=== PATIENT | female | born 1960 | race Caucasian/White ===

== ENCOUNTER 2017-02-23 14:00 | Observation (INO) | payer MEDICARE ==
[2017-02-23] VITALS (7 sets, daily range): BP systolic 107–137; BP diastolic 66–75; PULSE 107–124; RESP 16–24; TEMP 97.4–98.2; O2SAT 94–97
[~2017-02-23] VITALS: Ht 172.7 cm; Wt 71.5 kg
[~2017-02-23 14:00] MED LIST: AMIT1TAB79 PO; ASPI81TA81 PO; ATOR20TA15 PO; CARV6.252 PO; ENAL5TAB PO; FERR325T PO; FURO1TAB60 PO; GABA800T PO; GLUC1000 PO; IBUP800T23 PO; LETR2.5T PO; LORA1TAB12 PO; ONETTES4; VENL150T PO
--- NOTE | 2017-02-23 14:22 | PD ---
Physical Exam Date Seen by Provider: Feb 23, 2017 Time Seen by Provider: 14:16 Narrative 56 y/o female presents with increased SOB and Dyspnea with exertion. Patient has Hx Ascites and CHF last treated in 2013. Patient notes 14 lb weight gain in the past month. Patient states does not usually get lower extremity edema. Patient denies Chest pain, cough, or wheezing. No Hx Fever or cough. Denies COPD Hx. Patient states episode of Orthopnea last night. Patient currently takes Lasix 40mg daily. Reports decreased Urination, but no abd pain. V/S Stable. Cardiac Protocols ordered, CXR, and ProBNP ordered. Patient awaiting Med Bed Placement. Data Data Last Documented VS Vital Signs Date Time Temp Pulse Resp B/P Pulse Ox O2 Delivery O2 Flow Rate FiO2 02/23/17 14:02 97.4 124 24 137/75 97 Room Air [facility] Medical Record Reviewed: Yes Supervised Visit with NAUN: Yes Condition: Stable Jeffrey Allen Feb 23, 2017 14:22
[2017-02-23 15:03] LABS: AUTOMATED NEUTROPHIL # 7.6 TH/MM3 (1.8-7.7); BASOPHIL # 0.1 TH/MM3 (0-0.2); BASOPHIL % 0.6 % (0.0-2.0); EOSINOPHIL # 0.3 TH/MM3 (0-0.4); EOSINOPHIL % 2.9 % (0.0-4.0); HEMATOCRIT 36.6 % (35.0-46.0); HEMO FLAGS DIFF FINAL; LYMPH % 22.5 % (9.0-44.0); LYMPHOCYTE # 2.4 TH/MM3 (1.0-4.8); MEAN CELL VOLUME 88.8 FL (80.0-100.0); MEAN CORPUSCULAR HEMOGLOBIN 30.2 PG (27.0-34.0); MONO % 3.2 % (0.0-8.0); NEUT % 70.8 % (16.0-70.0); PLATELET COUNT 182 TH/MM3 (150-450); RED BLOOD COUNT 4.12 MIL/MM3 (4.00-5.30); RED CELL DISTRIBUTION WIDTH 13.8 % (11.6-17.2); WHITE BLOOD COUNT 10.8 TH/MM3 (4.0-11.0)
[2017-02-23 15:24] LABS: ANION GAP 10 MEQ/L (5-15); BLOOD UREA NITROGEN 13 MG/DL (7-18); CHLORIDE 103 MEQ/L (98-107); GLOMERULAR FILTRATION RATE 71 ML/MIN (>89); POTASSIUM 3.9 MEQ/L (3.5-5.1); SODIUM (NA) 138 MEQ/L (136-145)
--- NOTE | 2017-02-23 15:28 | RADRPT ---
EXAM DATE/TIME: 02/23/2017 15:13 [facility] COMPARISON: CHEST SINGLE AP, December 12, 2015, 14:54. INDICATIONS : Shortness of breath. MEDICAL HISTORY : Congestive heart failure. Carcinoma, breast. Diabetes mellitus type II. SURGICAL HISTORY : Right breast lumpectomy. ENCOUNTER: Initial ACUITY: 2 days PAIN SCORE: 0/10 LOCATION: chest FINDINGS: The heart is normal size. Central bronchopulmonary markings well delineated. There are a few thin h orizontal linear densities in the lower lateral left lung which may represent Kary B lines. No evid ence of equalization or cephalization of pulmonary flow. The azygos vein is normal in size. No evid ence of pleural effusion. The lungs are clear without focal infiltrate. CONCLUSION: No focal infiltrates seen. Possible thin septal lines at the left base is a nonspecific finding but can be seen with pulmonary venous hypertension. Vivek Valadez MD on February 23, 2017 at 15:24 Board Certified Radiologist. This report was verified electronically.
--- NOTE | 2017-02-23 15:39 | PD ---
HPI Chief Complaint: Respiratory Symptoms Time Seen by Provider: 15:38 Travel History International Travel<30 days: No Contact w/Intl Traveler<30days: No Traveled to known affect area: No History of Present Illness HPI 56-year-old female with PMH of CHF, breast cancer s/p partial mastectomy, ascites presents to the ED for evaluation of less than 24 hour history of shortness of breath, dyspnea on exertion, orthopnea. Endorses 10-15 pound weight gain over the last month. She denies fever or chills, cough, history of COPD, abdominal pain, nausea, vomiting, changes in bowel habits, lower extremity edema. Takes 40mg Lasix daily. Current smoker. PFSH Past Medical History Arthritis: Yes Cancer: Yes (breast) Cardiovascular Problems: Yes (CHF) Chemotherapy: Yes Congestive Heart Failure: Yes Diabetes: Yes Genitourinary: No Hypertension: Yes (DX LAST WEEK) Musculoskeletal: No Neurologic: No Reproductive: No Respiratory: Yes (CHF) Immunizations Current: Yes Radiation Therapy: Yes Menopausal: Yes Ectopic : Yes Ovarian Cysts: Yes Dilation and Curettage (D&C): Yes Past Surgical History Cholecystectomy: Yes Gynecologic Surgery: Yes (PARTIAL R MASTECTOMY) Hysterectomy: Yes Thoracic Surgery: Yes (lumpectomy) Tonsillectomy: Yes Other Surgery: Yes Social History Alcohol Use: No Tobacco Use: Yes (1 ppd) Substance Use: No Allergies-Medications (Allergen,Severity, Reaction): Coded Allergies: Gadolinium Derivatives (Verified Allergy, Severe, Swelling, 01/07/17) Reported Meds & Prescriptions Reported Meds & Active Scripts Active Lorazepam 1 Mg Tab 1 Mg PO HS PRN 2 Tablets at bed time as needed Venlafaxine ER 24 HR (Venlafaxine HCl) 150 Mg Tab 150 Mg PO DAILY Ferrous Sulfate 325 Mg Tab 325 Mg PO HS Letrozole 2.5 Mg Tab 2.5 Mg PO DAILY Glucophage (Metformin HCl) 1,000 Mg Tab 1,000 Mg PO BIDPC With a meal Enalapril (Enalapril Maleate) 5 Mg Tab 2.5 Mg PO BID Carvedilol 6.25 Mg Tab 3.125 Mg PO BID Atorvastatin (Atorvastatin Calcium) 20 Mg Tab 20 Mg PO DAILY Lasix (Furosemide) 40 Mg Tab 40 Mg PO DAILY Elavil (Amitriptyline HCl) 25 Mg Tab 25 Mg PO HS Reported Ibuprofen 800 Mg Tab 800 Mg PO TID Aspir-81 (Aspirin) 81 Mg Tabdr 81 Mg PO DAILY Onetouch Ultra Test Strips (Blood Glucose Test Strips) 1 Viridiana Viridiana 1 Strip .ROUTE DIRECTED Gabapentin 800 Mg Tab 800 Mg PO TID Review of Systems Except as stated in HPI: all other systems reviewed are Neg Physical Exam Narrative GENERAL: Well-nourished, well-developed white female in no acute distress. SKIN: Focused skin assessment warm/dry. There is a 2 cm rubbery, mobile, nontender nodule on the right collarbone. No signs of infection. HEAD: Normocephalic. EYES: No scleral icterus. No injection or drainage. NECK: Supple, trachea midline. No JVD or lymphadenopathy. CARDIOVASCULAR: Regular rate and rhythm without murmurs, gallops, or rubs. 2+ DP and radial pulses bilaterally. RESPIRATORY: Breath sounds clear and equal bilaterally. No accessory muscle use. Tachypneic. GASTROINTESTINAL: Abdomen soft, non-tender, nondistended. No fluid wave. No hepatosplenomegaly. Active bowel sounds. MUSCULOSKELETAL: No cyanosis, or edema. Patient is ambulatory and moves the extremities spontaneously. BACK: Nontender without obvious deformity. No CVA tenderness. Data Data Last Documented VS Vital Signs Date Time Temp Pulse Resp B/P Pulse Ox O2 Delivery O2 Flow Rate FiO2 02/23/17 19:55 112 22 127/74 94 Room Air 02/23/17 16:09 2 02/23/17 14:02 97.4 Orders Complete Blood Count With Diff (02/23/17 14:15) Basic Metabolic Panel (Bmp) (02/23/17 14:15) Chest, Single Ap (02/23/17 14:15) Electrocardiogram (02/23/17 14:15) B-Type Natriuretic Peptide (02/23/17 14:15) Troponin I (02/23/17 14:15) Furosemide Inj (Lasix Inj) (02/23/17 15:45) Iv Access Insert/Monitor (02/23/17 15:43) Ecg Monitoring (02/23/17 15:46) Oximetry (02/23/17 15:46) Sodium Chloride 0.9% Flush (Ns Flush) (02/23/17 16:00) Ct Pulmonary Angiogram (02/23/17 15:48) Iohexol 350 Inj (Omnipaque 350 Inj) (02/23/17 18:58) Labs Laboratory Tests Test 02/23/17 14:45 White Blood Count 10.8 TH/MM3 Red Blood Count 4.12 MIL/MM3 Hemoglobin 12.4 GM/DL Hematocrit 36.6 % Mean Corpuscular Volume 88.8 FL Mean Corpuscular Hemoglobin 30.2 PG Mean Corpuscular Hemoglobin 34.0 % Concent Red Cell Distribution Width 13.8 % Platelet Count 182 TH/MM3 Mean Platelet Volume 9.5 FL Neutrophils (%) (Auto) 70.8 % Lymphocytes (%) (Auto) 22.5 % Monocytes (%) (Auto) 3.2 % Eosinophils (%) (Auto) 2.9 % Basophils (%) (Auto) 0.6 % Neutrophils # (Auto) 7.6 TH/MM3 Lymphocytes # (Auto) 2.4 TH/MM3 Monocytes # (Auto) 0.3 TH/MM3 Eosinophils # (Auto) 0.3 TH/MM3 Basophils # (Auto) 0.1 TH/MM3 CBC Comment DIFF FINAL Differential Comment Sodium Level 138 MEQ/L Potassium Level 3.9 MEQ/L Chloride Level 103 MEQ/L Carbon Dioxide Level 25.0 MEQ/L Anion Gap 10 MEQ/L Blood Urea Nitrogen 13 MG/DL Creatinine 0.83 MG/DL Estimat Glomerular Filtration 71 ML/MIN Rate Random Glucose 177 MG/DL Calcium Level 8.9 MG/DL Troponin I LESS THAN 0.02 NG/ML B-Type Natriuretic Peptide 355 PG/ML MDM Medical Decision Making Medical Screen Exam Complete: Yes Emergency Medical Condition: Yes Differential Diagnosis CHF exacerbation versus PE versus pneumonia versus ascetics versus metastasis versus other Narrative Course 56-year-old female with PMH of CHF, breast cancer, ascites presents to the ED for evaluation of less than 24 hour history of shortness of breath, dyspnea on exertion, orthopnea. Endorses 10-15 pound weight gain over the last month. She denies fever or chills, cough, history of COPD, abdominal pain, nausea, vomiting , changes in bowel habits, lower extremity edema. Takes 40mg Lasix daily. Current smoker. Vital reviewed. Patient is tachycardic and tachypneic on presentation. O2 sats 96% on 2 L nasal cannula. Physical exam reveals a nontoxic-appearing white female in no acute distress. She is speaking in short sentences. Chest is clear to auscultation bilaterally. Abdomen soft, nontender. No fluid wave. No lower extremity edema. Patient was placed on continuous monitoring. IV was established. Patient was administered 40 mg Lasix IV. CBC: No leukocytosis or anemia BMP: Unremarkable BNP: 355 Troponin: <0.02 Chest x-ray: No focal infiltrates. Questionable thin septal lines of the left base, nonspecific but may be seen with pulmonary venous hypertension per radiology read. EKG: Rate 112, sinus rhythm. NJ interval 149 ms, QRS 90 ms, QTC 417 ms. Normal axis. No ST elevations or depressions. Similar to previous EKG of . Reviewed by Dr. Schmidt. CTA: Negative for PE. Bilateral small pleural effusions. There is a 5 mm nodule in the left lower lateral lung. Mildly prominent mid mediastinal lymph nodes. Questionable malignancy especially considering history of breast cancer. Outpatient CT or PET scan might be appropriate per radiology read. I discussed the results of the CTA with the patient. Given her continued tachypnea and shortness of breath I recommended that she stay for observation. Patient initially wanted to go home but after attempting to walk down the [place] and becoming quite dyspneic she opted to stay. Call placed to the residents who agreed to accept the patient to the medical service. Please see medicine for disposition. Diagnosis Primary Impression: Shortness of breath Additional Impression: Mass of lower lobe of left lung Theresa York Feb 23, 2017 15:39
[2017-02-23] MEDS ORDERED: FUROSEMIDE 40 MG/4 ML VIAL IV PUSH ONE (15:45)
[2017-02-23] MEDS ORDERED: SODIUM CHLORIDE 0.9% FLUSH 10 ML FLUSH IVF PRN (16:00)
[2017-02-23] MEDS ORDERED: IOHEXOL 350 MG/ML 10 ML VIAL (for RAD DIAG) IV ONE (18:58)
--- NOTE | 2017-02-23 19:26 | RADRPT ---
EXAM DATE/TIME: 02/23/2017 18:53 [facility] COMPARISON: No previous studies available for comparison. INDICATIONS : Shortness of breath since yesterday. IV CONTRAST: 70 cc Omnipaque 350 (iohexol) IV RADIATION DOSE: 23.04 CTDIvol (mGy) MEDICAL HISTORY : Congestive hearrt failure. Hypertension. Carcinoma, breast.diabetes SURGICAL HISTORY : Cholecystectomy. Mastectomy, right. ENCOUNTER: Initial ACUITY: 1 day PAIN SCALE: 0/10 LOCATION: Bilateral chest TECHNIQUE: Volumetric scanning of the chest was performed using a pulmonary embolism protocol MIP images were re constructed. Using automated exposure control and adjustment of the mA and/or kV according to patien t size, radiation dose was kept as low as reasonably achievable to obtain optimal diagnostic quality images. FINDINGS: PULMONARY ARTERIES: No filling defects are seen in the pulmonary arteries through the segmental level. LUNGS: There is a 5 mm nodule posterolateral right lower lung is seen on image #54. The remainder of the jocelynn ngs are clear. PLEURAE: There are small bilateral pleural effusions measuring up to 7 mm in thickness. MEDIASTINUM: Multiple mediastinal lymph nodes, the largest is in the subcarinal region measuring 1.5 cm. AP windo w nodes measure up to 9 mm and several nodes lateral to the arch of the aorta measure up to 9 mm. Th e azygos node measures 8 mm. CONCLUSION: 1. The study is negative for pulmonary embolism. 2. There is a 5 mm nodule in the lower lateral right lung and there are multiple mildly prominent mid dle mediastinal lymph nodes. This is nonspecific, but does raise the possibility of malignancy. 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 3. Bilateral pleural effusions, small. History of prior breast cancer with right mastectomy. Vivek Valadez MD on February 23, 2017 at 19:20 Board Certified Radiologist. This report was verified electronically.
[2017-02-23] MEDS ORDERED: REMOVE OLD PATCH T-DERMAL SCH (21:00)
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
[2017-02-23] MEDS ORDERED: ONDANSETRON HCL 4 MG/2 ML VIAL IVP PRN (21:15)
[2017-02-23] MEDS ORDERED: TEMAZEPAM 15 MG CAP PO PRN (21:15)
[2017-02-23] MEDS ORDERED: LORazepam 1 MG TAB PO PRN (21:15)
[2017-02-23] MEDS ORDERED: NALOXONE HCL 0.4 MG/ML AMP IV PRN (21:15)
[2017-02-23] MEDS ORDERED: DEXTROSE 50% IN WATER 50 ML VIAL(D50) IV PUSH PRN (21:15)
[2017-02-23] MEDS ORDERED: GLUCAGON 1 MG/ML VIAL OTHER PRN (21:15)
[2017-02-23] MEDS ORDERED: SODIUM CHLORIDE 0.9% FLUSH 10 ML FLUSH IV FLUSH PRN (21:15)
[2017-02-23] MEDS ORDERED: PILL SPLITTER OTHER PRN (21:45)
[2017-02-23] MEDS ORDERED: ENOXAPARIN SODIUM 40 MG/0.4 ML SYRINGE SQ SCH (22:00)
[2017-02-24 03:27] VITALS: BP 124/81; PULSE 109; RESP 19; TEMP 97.9; O2SAT 93
[2017-02-24] MEDS: INSULIN ASPART SUPPLEMENTAL SCALE SQ SCH ×2 (06:08→12:54)
[2017-02-24 06:48] LABS: AUTOMATED NEUTROPHIL # 6.7 TH/MM3 (1.8-7.7); BASOPHIL % 0.5 % (0.0-2.0); EOSINOPHIL # 0.3 TH/MM3 (0-0.4); EOSINOPHIL % 3.3 % (0.0-4.0); HEMO FLAGS DIFF FINAL; LYMPH % 22.9 % (9.0-44.0); LYMPHOCYTE # 2.2 TH/MM3 (1.0-4.8); MEAN CORPUSCULAR HEMOGLOBIN 29.5 PG (27.0-34.0); MEAN CORPUSCULAR HGB CONC 33.5 % (32.0-36.0); MONO % 3.5 % (0.0-8.0); NEUT % 69.8 % (16.0-70.0); PLATELET COUNT 155 TH/MM3 (150-450); RED BLOOD COUNT 4.09 MIL/MM3 (4.00-5.30); RED CELL DISTRIBUTION WIDTH 13.9 % (11.6-17.2); WHITE BLOOD COUNT 9.6 TH/MM3 (4.0-11.0)
[2017-02-24 07:12] LABS: ALT (GPT) 22 U/L (10-53); ANION GAP 9 MEQ/L (5-15); AST (GOT) 18 U/L (15-37); BICARBONATE 28.6 MEQ/L (21.0-32.0); BLOOD UREA NITROGEN 14 MG/DL (7-18); CHLORIDE 100 MEQ/L (98-107); GLOMERULAR FILTRATION RATE 78 ML/MIN (>89); POTASSIUM 3.2 MEQ/L (3.5-5.1); SODIUM (NA) 138 MEQ/L (136-145)
[2017-02-24 07:15] LABS: ALKALINE PHOSPHATASE 57 U/L (45-117); TOTAL BILIRUBIN ADULT 0.7 MG/DL (0.2-1.0)
[2017-02-24] MEDS: RESP: ALBUTEROL 2.5 MG/IPRATROPIUM 0.5 MG NEB (SCH) NEB ×3 (07:48→16:00)
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
[2017-02-24 07:57] VITALS: BP 130/80; PULSE 109; RESP 18; TEMP 97.6; O2SAT 93
[2017-02-24] MEDS: IBUPROFEN 800 MG TAB PO SCH ×2 (09:00→13:00)
[2017-02-24] MEDS ORDERED: ENALAPRIL MALEATE 5 MG TAB PO SCH (09:00)
[2017-02-24] MEDS ORDERED: ASPIRIN EC 81 MG TABEC PO SCH (09:00)
[2017-02-24] MEDS ORDERED: SODIUM CHLORIDE 0.9% FLUSH 10 ML FLUSH IV FLUSH SCH (09:00)
[2017-02-24] MEDS ORDERED: NICOTINE 21 MG/24 HR PATCH T-DERMAL SCH ×2 (09:00)
[2017-02-24] MEDS ORDERED: LETROZOLE 2.5 MG PO SCH (09:00)
[2017-02-24] MEDS ORDERED: VENLAFAXINE HCL XR 75 MG CAP PO SCH (09:00)
[2017-02-24] MEDS ORDERED: FUROSEMIDE 40 MG TAB PO SCH ×2 (09:00)
[2017-02-24] MEDS ORDERED: ATORVASTATIN 20 MG TAB PO SCH (09:00)
[2017-02-24] MEDS ORDERED: CARVEDILOL 3.125 MG TAB PO SCH (09:00)
[2017-02-24] MEDS: GABAPENTIN 400 MG CAP PO SCH ×2 (09:16→12:54)
[2017-02-24 12:07] VITALS: O2SAT 94
--- NOTE | 2017-02-24 13:36 | EKG ---
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
--- NOTE | 2017-02-24 13:36 | EKG ---
Date Performed: 02/24/2017 Time Performed: 04:10:58 PTAGE: 56 years EKG: SINUS TACHYCARDIA POSSIBLE RIGHT ATRIAL ENLARGEMENT POSSIBLE LEFT ATRIAL ENLARGEMENT NONSPE CIFIC ST & T-WAVE ABNORMALITY Compared to prior tracing no significant change ABNORMAL RHYTHM ECG PREVIOUS TRACING : 02/23/2017 22.48 DOCTOR: Satish Felipe Interpretating Date/Time 02/24/2017 13:32:54
--- NOTE | 2017-02-24 13:56 | EKG ---
Date Performed: 02/23/2017 Time Performed: 14:29:07 PTAGE: 56 years EKG: SINUS TACHYCARDIA LEFT ATRIAL ENLARGEMENT NONSPECIFIC ST & T-WAVE ABNORMALITY Compared to p revious tracing, ST-T changes are new, cannot rule out ischemia Clinical correlation is recommended A BNORMAL ECG PREVIOUS TRACING : 12/12/2015 13.06 DOCTOR: Satish Felipe Interpretating Date/Time 02/24/2017 13:54:26
[2017-02-24] MEDS ORDERED: POTA10CA PO (15:11)
[2017-02-24] MEDS ORDERED: FURO40TA PO (15:11)
--- NOTE | 2017-02-24 15:15 | HHI.DCPOC ---
Discharge Care Plan Diagnosis: (1) Acute exacerbation of CHF (congestive heart failure) (2) Diabetes mellitus Goals to Promote Your Health * To prevent worsening of your condition and complications * To maintain your health at the optimal level Directions to Meet Your Goals Take your medications as prescribed Follow your dietary instruction Follow activity as directed Keep your appointments as scheduled Take your immunizations and boosters as scheduled If your symptoms worsen call your PCP, if no PCP go to Urgent Care Center or Emergency Room Smoking is Dangerous to Your Health. Avoid second hand smoke Call the 24-hour hour crisis hotline for domestic abuse at Wesley Feldman MD R1 Feb 24, 2017 15:15
[2017-02-24 15:59] VITALS: BP 118/80; PULSE 98; RESP 18; O2SAT 95
[2017-02-24] MEDS ORDERED: FERROUS SULFATE 325 MG (65 MG ELEMENTAL IRON) TAB PO SCH (21:00)
[2017-02-24] MEDS ORDERED: AMITRIPTYLINE HCL 25 MG TAB PO SCH (21:00)
[2017-02-25 13:21] LABS: HEMOGLOBIN A1a 1.2 %; HEMOGLOBIN A1b 1.3 %; HEMOGLOBIN Ao 81.8 %; HEMOGLOBIN F 1.2 %; HEMOGLOBIN LA1C 2.1 %; HEMOGLOBIN P3 4.2 %
[2017-03-04] MEDS ORDERED: AMIT1TAB79 PO (06:49)
== END 2017-02-24 17:47 | disposition home or self-care (01) ==
LOC: NEPC 14:00 → NEDA 20:11 → NEPGCP 21:54
PROVIDERS: ADMIT Family Medicine; ATTEND Family Medicine
DX: I11.0 Hypertensive heart disease with heart failure (principal); I50.9 Heart failure, unspecified; R00.0 Tachycardia, unspecified; R06.82 Tachypnea, not elsewhere classified; R06.02 Shortness of breath; R18.8 Other ascites; E11.59 Type 2 diabetes mellitus with other circulatory complications; R91.8 Other nonspecific abnormal finding of lung field; F17.210 Nicotine dependence, cigarettes, uncomplicated; Z79.84 Long term (current) use of oral hypoglycemic drugs; Z85.3 Personal history of malignant neoplasm of breast
CPT/HCPCS: 71010; 71275; 80048; 80053; 82948; 83036; 83880; 84484; 85025; 93005; 94150; 94620; 94640; 94664; 96374; 99285; G0378; J1650; J1815; J1940; Q9967

== ENCOUNTER → 2017-02-27 | Outpatient (CLI) | payer MEDICARE ==
[~2017-02-27] MED LIST changes: +FURO40TA PO; +POTA10CA PO
[2017-02-27 11:13] LABS: BASOPHIL % 0.5 % (0.0-2.0); EOSINOPHIL # 0.3 TH/MM3 (0-0.4); EOSINOPHIL % 4.4 % (0.0-4.0); HEMATOCRIT 35.1 % (35.0-46.0); HEMO FLAGS DIFF FINAL; LYMPH % 23.8 % (9.0-44.0); LYMPHOCYTE # 1.8 TH/MM3 (1.0-4.8); MEAN CELL VOLUME 88.2 FL (80.0-100.0); MEAN CORPUSCULAR HEMOGLOBIN 29.4 PG (27.0-34.0); MEAN CORPUSCULAR HGB CONC 33.4 % (32.0-36.0); MONO % 4.9 % (0.0-8.0); NEUT % 66.4 % (16.0-70.0); PLATELET COUNT 173 TH/MM3 (150-450); RED BLOOD COUNT 3.99 MIL/MM3 (4.00-5.30); RED CELL DISTRIBUTION WIDTH 13.8 % (11.6-17.2); WHITE BLOOD COUNT 7.6 TH/MM3 (4.0-11.0)
[2017-02-27 11:32] LABS: WESTERGREN SEDIMENTATION RATE 21 mm/hr (0-30)
[2017-02-27 11:37] LABS: RHEUMATOID FACTOR TRIGGER LESS THAN 10.0 IU/ML (0.0-14.9)
[2017-02-27 11:40] LABS: HDL CHOLESTEROL 43.9 MG/DL (40.0-60.0)
[2017-02-27 12:03] LABS: ALKALINE PHOSPHATASE 59 U/L (45-117); ALT (GPT) 22 U/L (10-53); ANION GAP 8 MEQ/L (5-15); AST (GOT) 17 U/L (15-37); BICARBONATE 29.3 MEQ/L (21.0-32.0); BLOOD UREA NITROGEN 18 MG/DL (7-18); CHLORIDE 99 MEQ/L (98-107); FERRITIN 63 NG/ML (8-252); FOLLICLE STIMULATING HORMONE 66.1 mIU/mL; GLOMERULAR FILTRATION RATE 65 ML/MIN (>89); GLUCOSE,FASTING 202 MG/DL (74-99); LUTEINIZING HORMONE 19.5 mIU/mL; POTASSIUM 3.7 MEQ/L (3.5-5.1); SODIUM (NA) 136 MEQ/L (136-145); THYROXINE (T4) 8.1 MCG/DL (4.8-13.9); TOTAL BILIRUBIN ADULT 0.5 MG/DL (0.2-1.0)
[2017-02-27 14:31] LABS: RAPID PLASMA REAGIN SCREEN NON-REACTIVE (NON-REACTVE)
[2017-03-01 15:17] LABS: ANA SCREEN NEG (NEG)
[2017-03-01 15:51] LABS: DEHYDROEPIANDROSTERONE SULFATE 24 mcg/dL (8-188)
[2017-03-02 16:39] LABS: BIOAVAILABLE TESTOSTERONE 1.3 ng/dL (()); DIHYDROTESTOSTERONE <50 pg/mL (<=128); ESTRADIOL <10 pg/mL (())
== END ==
LOC: CLAB 10:14
PROVIDERS: ATTEND Family Medicine
DX: L65.9 Nonscarring hair loss, unspecified (principal); E55.9 Vitamin D deficiency, unspecified; D53.1 Other megaloblastic anemias, not elsewhere classified; E03.9 Hypothyroidism, unspecified; D64.9 Anemia, unspecified; R53.83 Other fatigue; R21 Rash and other nonspecific skin eruption; A53.9 Syphilis, unspecified; K75.9 Inflammatory liver disease, unspecified; E78.5 Hyperlipidemia, unspecified; I50.9 Heart failure, unspecified; Z79.899 Other long term (current) drug therapy
CPT/HCPCS: 36415; 80053; 80061; 82157; 82306; 82607; 82626; 82627; 82670; 82728; 82746; 83001; 83002; 84146; 84402; 84403; 84436; 84443; 84480; 85025; 85652; 86038; 86430; 86592; G0480; 80327

== ENCOUNTER → 2017-03-04 | Day surgery (SDC) | payer MEDICARE ==
[~2017-03-04] MED LIST changes: +BUPIVACAINE/EPINEPHRINE 0.5% 50 ML VIAL ONE; -FURO1TAB60 PO; +LACTATED RINGER'S 1000 ML INJ 1,000 ML ONE; +MIDAZOLAM HCL 2 MG/2 ML VIAL ONE; +ONDANSETRON HCL 4 MG/2 ML VIAL IV PUSH ONE; +PROPOFOL 200 MG/20 ML AMP IV ONE; +ceFAZolin 2 GM PREMIX 50 ML ONE
--- NOTE | 2017-03-04 12:29 | TN ---
cc: NAOMI BAILEY M.D. DATE OF SURGERY: 03/04/2017 PREOPERATIVE DIAGNOSIS 1. Concerning subcutaneous soft tissue mass, right chest. 2. History of breast cancer. POSTOPERATIVE DIAGNOSIS 1. Concerning subcutaneous soft tissue mass, right chest. 2. History of breast cancer. PROCEDURE PERFORMED Wide local excision concerning subcutaneous mass right chest, 4 x 2 cm. SURGEON Naomi Bailey MD ANESTHESIA General LMA. COMPLICATIONS None. INDICATION FOR PROCEDURE Ms. Willams is a very pleasant 56-year-old female who noticed an enlarging firm subcutaneous mass along her right clavicle. She has a history of breast cancer and there was concern about possible recurrence. The mass was quite firm on exam and appeared to be some type of malignant process. I recommended wide local excision for diagnostic and therapeutic purposes. Risks and benefits of wide local excision was discussed with her in the office and she was agreeable. DETAILS OF PROCEDURE The patient was identified, brought to the operating room and placed supine on the operating table. After adequate general anesthesia was achieved with LMA the anterior chest and neck was prepped and draped in standard surgical fashion. 0.25% Marcaine was injected around the mass. The mass had been marked in the preoperative holding area. Using a generous elliptical incision 4 x 2 cm we excised the skin around the mass. Next, subcutaneous tissue was dissected with electrocautery Bovie. Skin and fat were excised in toto making sure to have generous margins in all directions around the mass. Mass was excised and sent to pathology. Short stitch was placed superior, long stitch was placed lateral. The wound was irrigated with normal saline solution. Hemostasis was assured with electrocautery Bovie. Wound was then closed in two layers using a 3-0 Vicryl and 4-0 Vicryl. The patient tolerated the procedure well, was awakened and brought to recovery in stable condition. MD SARAH Arredondo/RIOS /12:13 PM /12:20 PM
== END | disposition home or self-care (01) ==
LOC: ESDC 09:41
PROVIDERS: ATTEND Surgery Trauma Surgery
DX: C44.599 Other specified malignant neoplasm of skin of other part of trunk (principal); Z85.3 Personal history of malignant neoplasm of breast
CPT/HCPCS: 00400; 21552; 88307; 88341; 88342; J0690; J2250; J2405; J3010; J7120; 88305